=== PATIENT | female | born 1960 | race Caucasian/White ===

== ENCOUNTER → 2025-01-21 | Day surgery (SDC) | payer BC ==
[~2025-01-21] MED LIST: ADDERALL 10 MG10 MG PO; ALLERGY4 MG PO; FENTANYL CITRATE/PF 100MCG/2 ML INJ ONE; GLYCOPYRROLATE INJ 0.2 MG/ML VIAL ONE; HYOSCYAMINE SULFATE 0.5 MG/ML INJ ONE; LIDOCAINE HCL 2% LOCAL INJ 5 ML SDV VIAL INJ ONE; MAGNESIUM100 MG PO; PROPOFOL IV EMULSION 10 MG/ML 20 ML VIAL ONE; PROPOFOL IV EMULSION 50 ML IV ONE; VITAMIN D310 MCG PO
[2025-01-21] MEDS: LACTATED RINGER'S 1,000 ML ONE (08:52)
[2025-01-21 12:36] VITALS: TEMP 97.5
[2025-01-21 13:05] VITALS: BP 125/70; PULSE 76; RESP 16; O2SAT 99
[2025-01-21 15:09] LABS: CDIFF AG QUIK CHEK NEGATIVE (NEGATIVE); CDIFF TOX QUIK CHEK NEGATIVE (NEGATIVE)
== END | disposition home or self-care (01) ==
LOC: OR 08:21
PROVIDERS: ATTEND Internal Medicine Gastroenterology
DX: K29.70 Gastritis, unspecified, without bleeding (principal); K52.831 Collagenous colitis; K25.9 Gastric ulcer, unspecified as acute or chronic, without hemorrhage or perforation; K29.80 Duodenitis without bleeding; K21.00 Gastro-esophageal reflux disease with esophagitis, without bleeding; K22.70 Barrett's esophagus without dysplasia; K44.9 Diaphragmatic hernia without obstruction or gangrene; K31.89 Other diseases of stomach and duodenum; K62.89 Other specified diseases of anus and rectum; K59.00 Constipation, unspecified; Z71.3 Dietary counseling and surveillance; R63.4 Abnormal weight loss; R03.0 Elevated blood-pressure reading, without diagnosis of hypertension; Z71.89 Other specified counseling; F90.9 Attention-deficit hyperactivity disorder, unspecified type; F17.210 Nicotine dependence, cigarettes, uncomplicated; Z01.810 Encounter for preprocedural cardiovascular examination; Z79.899 Other long term (current) drug therapy; Z80.0 Family history of malignant neoplasm of digestive organs
CPT/HCPCS: 43239; 45380; 83630; 83993; 87045; 87177; 87324; 87328; 87449; 93005; J1980; J2003; J2470; J2704 ×2; J3010; J7121; 45378